=== PATIENT | female | born 1945 | race Caucasian/White ===

== ENCOUNTER → 2016-11-20 | Outpatient (CLI) | payer MEDICARE ==
[2016-11-20 09:03] LABS: ALT 22 U/L (9-52); AST 20 U/L (14-36); Cholesterol 219 mg/dL (<200); HDL Cholesterol 70 mg/dL (40-60); Triglycerides 106 mg/dL (<150)
== END | disposition home or self-care (01) ==
LOC: LABWHC1 08:23
PROVIDERS: ATTEND Internal Medicine Cardiovascular Disease
DX: E78.5 Hyperlipidemia, unspecified (principal)
CPT/HCPCS: 36415; 80061; 84450; 84460

== ENCOUNTER → 2018-06-01 | Outpatient (CLI) | payer MEDICARE ==
[2018-06-01 17:02] LABS: Albumin/Globulin Ratio 2.22 (1.20-2.10); Anion Gap 5.6 mmol/L (4.00-12.00); Calcium 9.1 mg/dL (8.7-10.3); Carbon Dioxide 28.4 mmol/L (21.6-31.8); Globulin 1.8 g/dL (2.1-3.7); LDL Cholesterol,Calculated 116.2 mg/dL (0.0-131.0); Potassium 4.2 mmol/L (3.5-5.5); Total Bilirubin 0.6 mg/dL (0.3-1.2); Total Protein 5.8 g/dL (6.2-8.2); VLDL Calculation 24.8 mg/dL (5.00-40.00)
== END ==
LOC: LABWHC1 09:09
PROVIDERS: ATTEND Internal Medicine Cardiovascular Disease
DX: I10 Essential (primary) hypertension (principal); E78.5 Hyperlipidemia, unspecified
CPT/HCPCS: 36415; 80053; 80061; 84439; 84443

== ENCOUNTER → 2019-01-04 | Outpatient (CLI) | payer MEDICARE ==
[2019-01-04 17:47] LABS: LDL Cholesterol,Calculated 168.2 mg/dL (0.0-131.0); VLDL Calculation 34.8 mg/dL (5.00-40.00)
== END | disposition home or self-care (01) ==
LOC: LABWHC1 09:29
PROVIDERS: ATTEND Internal Medicine Cardiovascular Disease
DX: E78.2 Mixed hyperlipidemia (principal)
CPT/HCPCS: 36415; 80061; 82550; 84450; 84460

== ENCOUNTER → 2020-09-25 | Outpatient (CLI) | payer MEDICARE ==
[2020-09-25 15:57] LABS: Basophils # (A) 0.06 X 10*3/uL (0.00-0.10); Eosinophils # (A) 0.14 X 10*3/uL (0.04-0.35); Eosinophils % (A) 2.4 %; HCT 43.4 % (37.2-46.3); HGB 13.9 g/dL (12.0-15.0); Lymphocytes # (A) 1.05 X 10*3/uL (0.90-5.00); MCH 32.3 pg (27.0-32.0); MCV 100.7 fL (80.0-97.0); Mean Platelet Volume 10.6 fL (9.5-12.2); Monocytes # (A) 0.59 X 10*3/uL (0.20-1.00); Monocytes % (A) 10.1 %; Neutrophils # (A) 3.96 X 10*3/uL (1.80-7.70); Neutrophils % (A) 68.2 %; Platelet Count 237 X 10*3/uL (140-440); RBC 4.31 X 10*6/uL (4.10-5.20); RDW 13.2 % (11.5-14.5); WBC 5.82 X 10*3/uL (4.50-10.00)
[2020-09-25 16:24] LABS: African American GFR (CKD) 104.1 (60.0-200.0); Albumin 4.3 g/dL (3.80-4.90); Albumin/Globulin Ratio 2.26 (1.60-3.17); Calcium 9.6 mg/dL (8.7-10.3); Chol/HDL Ratio 3.22; Globulin 1.9 g/dL (1.6-3.3); Non-African American GFR(CKD) 89.8 (60.0-200.0); Total Bilirubin 0.7 mg/dL (0.3-1.2); Total Protein 6.2 g/dL (6.2-8.2)
== END | disposition home or self-care (01) ==
LOC: LABWHC1 08:30
PROVIDERS: ATTEND Internal Medicine Cardiovascular Disease
DX: I10 Essential (primary) hypertension (principal); E78.5 Hyperlipidemia, unspecified
CPT/HCPCS: 36415; 80053; 80061; 85025

== ENCOUNTER → 2022-12-22 | Outpatient (CLI) | payer MEDICARE ==
[2022-12-22 16:46] LABS: ALT 11 U/L (8-44); AST 16 U/L (13-35); Chol/HDL Ratio 3.35 Ratio; LDL Cholesterol,Calculated 121.5 mg/dL (0.0-131.0)
== END | disposition home or self-care (01) ==
LOC: LABWHC1 07:51
PROVIDERS: ATTEND Internal Medicine Cardiovascular Disease
DX: E78.2 Mixed hyperlipidemia (principal)
CPT/HCPCS: 36415; 80061; 84450; 84460